=== PATIENT | female | born 1945 | race Two or more races ===

== ENCOUNTER 2016-07-31 20:27 | Inpatient (IN) | payer MEDICARE, OTHER ==
[~2016-07-31] VITALS: Ht 160 cm; Wt 83.2 kg
[~2016-07-31 20:27] MED LIST: CLIN1CAP4 PO
[2016-07-31 22:06] LABS: Basophils # (auto) 0 uL; Basophils % (auto) 0.5 % (0.0-2.0); Eosinophils # (auto) 0.1 uL; Eosinophils % (auto) 1.8 % (0.0-7.0); Hematocrit 33.1 % (36.0-46.0); Hemoglobin 10.6 g/dL (12.2-16.2); Lymphocytes # (auto) 2.1 uL; Lymphocytes % (auto) 28.5 % (10.0-50.0); Mean Corpuscular Hgb Conc. 32.1 g/dL (32.0-36.0); Mean Corpuscular Volume 96.7 fL (80.0-100.0); Mean Platelet Volume 7.9 fL (7.4-10.4); Monocytes # (auto) 0.5 uL; Monocytes % (auto) 7.3 % (0.0-12.0); Neutrophils # (auto) 4.6 uL; Neutrophils % (auto) 61.9 % (37.0-80.0); Platelet Count (auto) 222 10^3/uL (140-450); Red Cell Distribution Width 14.5 % (11.6-16.0); White Blood Cell 7.5 10^3/uL (4.4-10.8)
[2016-07-31 22:26] LABS: Albumin 3.4 g/dL (3.4-5.0); BUN/Creatinine Ratio 14.2; Bilirubin, Total 0.2 mg/dL (0.2-1.0); Calcium 8.6 mg/dL (8.5-10.1); Potassium 3.8 mmol/L (3.5-5.1); Total Protein 6.8 g/dL (6.4-8.2)
[2016-07-31 22:28] LABS: INR 1.29 (0.9-1.15); Prothrombin Time 13.3 sec (9.37-12.3)
[2016-07-31 22:35] LABS: B-Type Natriuretic Peptide 148.96 pg/mL (0-100); Temperature: 21.1 C (20.0-25.0)
[2016-08-01] MEDS ORDERED: SODIUM CHLORIDE 0.9% 1,000 ML IV ONE (07:41)
[2016-08-01] MEDS ORDERED: PROMETHAZINE HCL 25 MG/ML 1ML IV ONE (07:45)
[2016-08-01] MEDS ORDERED: NALBUPHINE HCL 10 MG/1ml INJECTION IV ONE (07:45)
[2016-08-01] MEDS ORDERED: DEXTROSE (50%) 50ML SYRG IV PRN (14:15)
[2016-08-01] MEDS ORDERED: ONDANSETRON HCL 4 MG/2 ML VIAL IV PRN (14:15)
[2016-08-01] MEDS ORDERED: MORPHINE SULF INJ 2 MG/ML SYRINGE 1ML IV PRN (14:15)
[2016-08-01] MEDS ORDERED: METOPROLOL TARTRATE 50 MG TAB PO ONE (14:15)
[2016-08-01] MEDS: SODIUM CHLORIDE 0.9% 1,000 ML IV SCH (14:30)
[2016-08-01] MEDS: HYDROcodone-ACET 5/325MG TAB PO PRN ×2 (15:41→21:20)
[2016-08-01] MEDS ORDERED: ZOLP10TA PO (15:46)
[2016-08-01] MEDS: hydrALAZINE HCL 20 MG/ML VL IV PRN (16:48)
[2016-08-01] MEDS: ACCU-CHEK COMFORT CURVE STRIP VI SCH (18:02)
[2016-08-01] MEDS ORDERED: ISOS30TA4 PO (18:41)
[2016-08-01] MEDS ORDERED: CARV12.544 PO (18:41)
[2016-08-01] MEDS ORDERED: AMIO200T33 PO (18:41)
[2016-08-01] MEDS ORDERED: PANT40T PO (18:41)
[2016-08-01] MEDS ORDERED: METO5TAB2 PO (18:41)
[2016-08-01] MEDS ORDERED: SUCR1TAB PO (18:41)
[2016-08-01] MEDS ORDERED: POTA-165 PO (18:41)
[2016-08-01] MEDS ORDERED: GLIP-116 PO (18:41)
[2016-08-01] MEDS ORDERED: CLOP75TA41 PO (18:41)
[2016-08-01] MEDS ORDERED: GABA-494 PO (18:41)
[2016-08-01] MEDS ORDERED: LOSA100T26 PO (18:41)
[2016-08-01] MEDS ORDERED: INSLISPI SC (18:41)
[2016-08-01] MEDS ORDERED: ZOLP10TA6 PO (18:44)
[2016-08-01] MEDS ORDERED: RIV15T PO (18:44)
[2016-08-01] MEDS ORDERED: TRAM50TA2 PO (18:44)
[2016-08-01] MEDS: InsuLIN REG 1unit/0.01ml Soln (100units/ml) SC SCH (18:53)
[2016-08-01 20:41] VITALS: BP 119/47
[2016-08-01] MEDS: METOPROLOL TARTRATE 50 MG TAB PO SCH (21:19)
[2016-08-02] MEDS: InsuLIN REG 1unit/0.01ml Soln (100units/ml) SC SCH ×3 (01:16→12:00)
[2016-08-02] MEDS: hydrALAZINE HCL 20 MG/ML VL IV PRN (03:08)
[2016-08-02 04:34] VITALS: BP 146/68
[2016-08-02] MEDS: ACCU-CHEK COMFORT CURVE STRIP VI SCH ×3 (06:12→12:00)
[2016-08-02 09:00] VITALS: BP 126/75
[2016-08-02] MEDS: METOPROLOL TARTRATE 50 MG TAB PO SCH (09:41)
[2016-08-02] MEDS: SODIUM CHLORIDE 0.9% 1,000 ML IV SCH (10:15)
[2016-08-02] MEDS ORDERED: ceFAZolin 1GM/50ML D5W 50 ML IV ONE (12:09)
[2016-08-02] MEDS ORDERED: ROSU40TA PO (12:11)
[2016-08-02] MEDS ORDERED: LABETALOL HCL 5 MG/ML 4ML SYRINGE IV ONE (12:34)
[2016-08-02] MEDS ORDERED: BUPIVACAINE 0.75% INJ 10ML MPV SDV IJ ONE (12:34)
[2016-08-02] MEDS ORDERED: ceFAZolin 1GM VL ONE (12:34)
[2016-08-02] MEDS ORDERED: fentaNYL CITRATE 100 MCG/2 ML VL ONE (12:37)
[2016-08-02] MEDS ORDERED: MIDAZOLAM HCL 1MG/1ML-2 ML VIAL ONE (12:38)
[2016-08-02] MEDS ORDERED: ONDANSETRON HCL 4 MG/2 ML VIAL ONE (12:38)
[2016-08-02] MEDS ORDERED: DEXAMETHASONE SOD PHOS 10MG/1ML VIAL INJ ONE (12:38)
[2016-08-02] MEDS ORDERED: HYDROmorphone HCL 2 MG/ML VL IV PRN (13:30)
[2016-08-02] MEDS ORDERED: ONDANSETRON HCL 4 MG/2 ML VIAL IV ONE (13:30)
[2016-08-02] MEDS: HYDROcodone-ACET 5/325MG TAB PO PRN (14:35)
[2016-08-02 15:13] VITALS: BP 126/75
== END 2016-08-02 15:48 | disposition home or self-care (01) | DRG 623 ==
LOC: ER 20:34 → EAST 20:35 → WEST WING 08-01 17:30
PROVIDERS: ADMIT Internal Medicine; ATTEND Internal Medicine
PROC: 0HRMXK3 Replacement of Right Foot Skin with Nonautologous Tissue Substitute, Full Thickness, External Approach (ICD-10-PCS; 2016-08-02)
PROC: 0JBQ0ZZ Excision of Right Foot Subcutaneous Tissue and Fascia, Open Approach (ICD-10-PCS; principal; 2016-08-02 12:46)
DX: E11.621 Type 2 diabetes mellitus with foot ulcer (principal); I13.0 Hypertensive heart and chronic kidney disease with heart failure and stage 1 through stage 4 chronic kidney disease, or unspecified chronic kidney disease; I50.32 Chronic diastolic (congestive) heart failure; L97.519 Non-pressure chronic ulcer of other part of right foot with unspecified severity; N18.3 Chronic kidney disease, stage 3 (moderate); I25.10 Atherosclerotic heart disease of native coronary artery without angina pectoris; E78.5 Hyperlipidemia, unspecified; I48.91 Unspecified atrial fibrillation; D63.8 Anemia in other chronic diseases classified elsewhere; E11.21 Type 2 diabetes mellitus with diabetic nephropathy; E11.22 Type 2 diabetes mellitus with diabetic chronic kidney disease; H54.8 Legal blindness, as defined in USA; I27.2 Other secondary pulmonary hypertension; Z86.73 Personal history of transient ischemic attack (TIA), and cerebral infarction without residual deficits
CPT/HCPCS: 36415; 71020; 80053; 82962; 83036; 83735; 83880; 84484; 85025; 85049; 85610; 85730; 94761; 96361; 96374; 96375; J0690; J1100; J1815; J2250; J2405; J3490